=== PATIENT | male | born 1950 | race African-American/Black ===

== ENCOUNTER 2022-07-15 14:44 | Emergency (ER) | payer OTHER ==
[2022-07-15 14:58] VITALS: RESP 16; BMI 25.9
[2022-07-15] MEDS ORDERED: ACETAMINOPHEN 500 MG TABLET (FP) PO ONE (15:23)
[2022-07-15] MEDS ORDERED: ACETAMINOPHEN 500 MG TABLET (FP) ONE (15:53)
[2022-07-15 18:03] VITALS: BP 127/94; PULSE 71; TEMP 98.7
[2022-07-15] MEDS ORDERED: predniSONE 20 MG TABLET (UD) PO ONE (19:20)
[2022-07-15] MEDS ORDERED: predniSONE 20 MG TABLET (UD) ONE (19:24)
== END 2022-07-15 19:45 | disposition home or self-care (01) ==
LOC: FER 14:44
DX: M79.641 Pain in right hand (principal); R22.31 Localized swelling, mass and lump, right upper limb
CPT/HCPCS: 73110-TC-RT-FY; 73130-TC-RT-FY; 93005; 93971; 99285-25